=== PATIENT | male | born 1965 | race Caucasian/White ===

== ENCOUNTER 2018-04-13 15:30 | Emergency (ER) | payer OTHER ==
[~2018-04-13] VITALS: Ht 180.3 cm; Wt 117.9 kg
[2018-04-13] MEDS ORDERED: MAXALT5 MG PO (21:00)
== END 2018-04-13 21:27 | disposition home or self-care (01) ==
LOC: ER 15:30
DX: G43.919 Migraine, unspecified, intractable, without status migrainosus (principal); R51 Headache

== ENCOUNTER 2018-04-18 14:58 | Emergency (ER) | payer OTHER ==
[~2018-04-18] VITALS: Ht 180.3 cm; Wt 72.6 kg
[~2018-04-18 14:58] MED LIST: MAXALT5 MG PO
== END 2018-04-18 18:09 | disposition home or self-care (01) ==
LOC: ER 14:58
DX: R51 Headache (principal)

== ENCOUNTER 2022-07-06 17:29 | Inpatient (IN) | payer OTHER ==
[~2022-07-06] VITALS: Ht 180.3 cm; Wt 121.1 kg
== END 2022-07-13 20:30 | disposition home or self-care (01) | DRG 392 ==
LOC: ER 17:29 → SURH 07-07 00:49 → SEC-K 07-07 00:49 → SURH 07-07 11:10
PROVIDERS: ADMIT Internal Medicine; ATTEND Internal Medicine
PROC: BW21ZZZ Computerized Tomography (CT Scan) of Abdomen and Pelvis (ICD-10-PCS; principal; 2022-07-06)
PROC: 3E0336Z Introduction of Nutritional Substance into Peripheral Vein, Percutaneous Approach (ICD-10-PCS; 2022-07-07)
PROC: BW21YZZ Computerized Tomography (CT Scan) of Abdomen and Pelvis using Other Contrast (ICD-10-PCS; 2022-07-10)
DX: K57.20 Diverticulitis of large intestine with perforation and abscess without bleeding (principal); Z20.822 Contact with and (suspected) exposure to COVID-19

== ENCOUNTER 2022-09-26 11:43 | Inpatient (IN) | payer OTHER ==
[~2022-09-26] VITALS: Ht 180.3 cm; Wt 121.1 kg
== END 2022-10-01 14:24 | disposition home or self-care (01) | DRG 392 ==
LOC: ER 11:43 → MEDJ 23:11 → MEDI 09-27 10:41
PROVIDERS: ADMIT Internal Medicine; ATTEND Internal Medicine
PROC: BW21YZZ Computerized Tomography (CT Scan) of Abdomen and Pelvis using Other Contrast (ICD-10-PCS; principal; 2022-09-26)
DX: K57.20 Diverticulitis of large intestine with perforation and abscess without bleeding (principal); R10.32 Left lower quadrant pain; E66.8 Other obesity; Z68.35 Body mass index [BMI] 35.0-35.9, adult; Z20.822 Contact with and (suspected) exposure to COVID-19

== ENCOUNTER 2023-04-05 18:29 | Inpatient (IN) | payer OTHER ==
[~2023-04-05] VITALS: Ht 180.3 cm; Wt 117.9 kg
== END 2023-04-08 12:37 | disposition home or self-care (01) | DRG 392 ==
LOC: ER 18:29 → MEDI 04-06 13:59
PROVIDERS: ADMIT Internal Medicine; ATTEND Internal Medicine
PROC: BW21YZZ Computerized Tomography (CT Scan) of Abdomen and Pelvis using Other Contrast (ICD-10-PCS; principal; 2023-04-05)
PROC: BW40ZZZ Ultrasonography of Abdomen (ICD-10-PCS; 2023-04-06)
DX: K57.32 Diverticulitis of large intestine without perforation or abscess without bleeding (principal); R10.32 Left lower quadrant pain

== ENCOUNTER 2025-02-18 14:05 | Emergency (ER) | payer OTHER ==
[~2025-02-18] VITALS: Ht 180.3 cm; Wt 120.2 kg
[2025-02-18 15:18] VITALS: BP 123/78; O2SAT 97
[2025-02-18] MEDS ORDERED: TRIAMCINOLONE ACETONIDE 40 MG/ML VIAL IM ONE (16:15)
[2025-02-18] MEDS ORDERED: KETOROLAC TROMETHAMINE 60 MG VIAL IM ONE ×2 (16:15→16:23)
[2025-02-18] MEDS ORDERED: TRIAMCINOLONE ACETONIDE 40 MG/ML VIAL ONE (16:23)
[2025-02-18] MEDS ORDERED: DICLOFENAC SODI75 MG PO (18:13)
== END 2025-02-18 18:36 | disposition home or self-care (01) ==
LOC: ER 14:06
DX: M75.52 Bursitis of left shoulder (principal); M75.32 Calcific tendinitis of left shoulder